=== PATIENT | female | born 1965 | race Caucasian/White ===

== ENCOUNTER → 2018-03-05 | Outpatient (CLI) | payer OTHER ==
[~2018-03-05] MED LIST: SUMA25TA12 PO
[2018-03-05 13:12] LABS: ALBUMIN 4.3 gm/dl (3.4-5.0); ALKALINE PHOSPHATASE 71 U/L (45-117); ALT/SGPT 35 U/L (12-78); AST/SGOT 17 U/L (15-37); BLOOD UREA NITROGEN 14 mg/dl (7-18); CALCIUM 9.2 mg/dl (8.5-10.1); CARBON DIOXIDE 27 mmol/L (21-32); CHOLESTEROL 240 mg/dl (0-200); CREATININE 0.88 mg/dl (0.60-1.20); GLUCOSE 96 mg/dl (70-99); LDL CHOLESTEROL CALCULATED 95 mg/dl; POTASSIUM 4.1 mmol/L (3.5-5.1); SODIUM 137 mmol/L (136-145); TOTAL PROTEIN 7.5 gm/dl (6.4-8.2)
== END | disposition home or self-care (01) ==
LOC: C.LABPVFM 09:27
PROVIDERS: ATTEND Family Medicine
DX: Z13.220 Encounter for screening for lipoid disorders (principal); Z13.1 Encounter for screening for diabetes mellitus